=== PATIENT | female | born 1995 | race Caucasian/White ===

== ENCOUNTER 2016-09-22 09:41 | Outpatient (CLI) | payer OTHER ==
[2015-10-10 22:41] VITALS: BP 138/85
== END 2016-09-22 09:42 ==
LOC: LAB 09:41
PROVIDERS: ATTEND Physician Assistant
DX: N93.9 Abnormal uterine and vaginal bleeding, unspecified (principal); Z32.00 Encounter for pregnancy test, result unknown
CPT/HCPCS: 36415; 84702

== ENCOUNTER 2016-10-12 16:09 | Outpatient (CLI) | payer OTHER ==
[2015-10-10 22:41] VITALS: BP 138/85
[2016-10-13 11:31] LABS: CANDIDA SPECIES DNA PROBE NEGATIVE (NEGATIVE); GARDNERELLA VAGINALIS NEGATIVE (NEGATIVE); TRICHOMONAS VAGINALIS NEGATIVE (NEGATIVE)
== END 2016-10-12 16:10 ==
LOC: LABRHC 16:09
PROVIDERS: ATTEND Physician Assistant
DX: N89.8 Other specified noninflammatory disorders of vagina (principal); N93.0 Postcoital and contact bleeding
CPT/HCPCS: 87480; 87491; 87510; 87591; 88148; G0143

== ENCOUNTER 2017-02-02 10:33 | Outpatient (CLI) | payer OTHER ==
[2015-10-10 22:41] VITALS: BP 138/85
== END 2017-02-02 10:34 ==
LOC: LABRHC 10:33
PROVIDERS: ATTEND Physician Assistant
DX: N89.8 Other specified noninflammatory disorders of vagina (principal); Z72.51 High risk heterosexual behavior
CPT/HCPCS: 87491; 87591

== ENCOUNTER 2017-10-03 12:02 | Outpatient (CLI) | payer OTHER ==
[2015-10-10 22:41] VITALS: BP 138/85
[2017-10-03 12:14] LABS: BASOPHILS % 0.3 (0.0-1.5); EOSINOPHILS % 0.5 % (0.0-6.8); MEAN CORPUSCULAR HEMOGLOBIN 32.8 pg (28.0-34.0); MEAN CORPUSCULAR VOLUME 99.3 fl (80.0-100.0); MONOCYTES % 5.3 % (0.0-11.0); NEUTROPHILS # 5.1 # k/uL (1.4-7.7)
== END 2017-10-03 12:03 ==
LOC: LAB 12:02
PROVIDERS: ATTEND Physician Assistant
DX: J02.9 Acute pharyngitis, unspecified (principal)
CPT/HCPCS: 36415; 85025; 86308

== ENCOUNTER 2018-01-31 17:42 | Emergency (ER) | payer OTHER ==
--- NOTE | 2018-01-31 17:52 | ED Physician Documentation ---
Low Back Pain - HISTORIAN Historian: patient - HPI Chief Complaint: Low Back Pain/ Injury History: other (left hip, has bben seeing orthopedic for this, doing exercises which have helped) Onset: minutes Duration: continues in ED Recent Injury: No Context: other (coughing) Where: home Severity: severe Associated Symptoms: denies: fever, chills Worsened By:: upright position, movement to RT flexion, movement to LT flexion, cough Relieved By: remaining still - ROS CONST: no problems CVS/RESP: denies: chest pain, shortness of breath - PAST HX Past History: other Other History: other (none) Surgeries/Procedures: appendectomy, other (tonsilectomy) Immunizations: referred to PCP - SOCIAL HX Smoking History: non-smoker Alcohol Use: occasionally Drug Use: marijuana - FAMILY HX Family History: no significant history - REVIEWED ASSESSMENTS Nursing Assessment Reviewed: Yes Vitals Reviewed: Yes <Issa Watkins - Last Filed: 01/31/18 18:21> <CHANELLE MORRISON - Last Filed: 01/31/18 20:21> - HPI Additional Information: Patient states that after coughing spell and developed a sudden onset of pain in the low back area. Grabbing intense pain in the lower back. Was unable to walk, pain made her knees buckle under her. Pain is worse with moving. No numbness, weakness noted. Denies . (Issa Watkins) Patient states that after coughing spell and developed a sudden onset of pain in the low back area. Grabbing intense pain in the lower back. Was unable to walk, pain made her knees buckle under her. Pain is worse with moving. No numbness, weakness noted. Denies . (CHANELLE MORRISON) - PAST HX Allergies/Adverse Reactions: Allergies Allergy/AdvReac Type Severity Reaction Status Date / Time Penicillins Allergy Severe Throat Verified 01/31/18 17:56 Swelling Home Medications: Ambulatory Orders Medication Instructions Recorded Medroxyprogesterone Acetate 400 mg IM DIRECTED 03/14/14 [Depo-Provera] Baclofen [Liorasal] 10 mg PO TID PRN #30 tablet 01/31/18 Ketorolac Tromethamine [Toradol] 10 mg PO TID #15 tablet 01/31/18 - VITAL SIGNS Vital Signs: Vital Signs Temp Pulse Resp BP Pulse Ox 97.8 F 94 H 24 122/103 97 01/31/18 17:44 01/31/18 17:44 01/31/18 17:44 01/31/18 17:44 01/31/18 17:44 Progress <Issa Watkins - Last Filed: 01/31/18 18:21> <CHANELLE MORRISON - Last Filed: 01/31/18 20:21> - Progress Progress: 0 Assumed care of patient; in radiology for xrays. 1929 Walked into patient room, patient stated "Do I just need to go to [place]?". Examined patient; continues to c/o 10/10 low back pain. No spasm noted; xrays negative. C/O pain radiating down both legs. Denies numbness or weakness. Will check UA for hematuria. Additional Stadol 2mg IM given. UA negative. Reviewed plan of care. Patient continues to c/o pain. Will send home with 2 norco. explained that she could not take before midnight. Instructed patient to tell [place] she was seen at [facility] if she returns to ER [facility]. Instructed patient to make a follow up appointment with PCP in 3-4 days, explained that she would need MRI if pain continues. Patient verbailzed understanding. Able to walk out of ER without assistance. (CHANELLE MORRISON) ED Results Lab/Radiology <Issa Watkins - Last Filed: 01/31/18 18:21> <CHANELLE MORRISON - Last Filed: 01/31/18 20:21> - Lab Results Lab Results: Lab Results 01/31/18 18:15 Serum HCG, Qual Negative (NEGATIVE) - Radiology Radiology Impressions: Ice Rest Elevation If you are unable to bear weight and continuing to have significant pain on day 3-4; see your PCP for re-evaluation and additional xrays. You may use Tylenol every 4hour as needed for pain. Limit your dose to less than 4 G per day. Do not take ibuprofen, aleve, naproxen or any other NSAID while you are on toradol. You may want to try massage, over the counter lidocaine patches, biofreeze, cullen torres or aspercream . (Issa Watkins) Ice Rest Elevation If you are unable to bear weight and continuing to have significant pain on day 3-4; see your PCP for re-evaluation and additional xrays. You may use Tylenol every 4hour as needed for pain. Limit your dose to less than 4 G per day. Do not take ibuprofen, aleve, naproxen or any other NSAID while you are on toradol. You may want to try massage, over the counter lidocaine patches, biofreeze, cullen torres or aspercream . (CHANELLE MORRISON) - Orders Orders: ED Orders Category Date Time Status Place IV Lock 1T Care 01/31/18 17:58 Active L SPINE 2 OR 3 VIEWS [RAD] Stat Exams 01/31/18 Ordered HCG [SERUM HCG] Routine Lab 01/31/18 18:15 Completed UA W/MICRO IF INDICATED Stat Lab 01/31/18 19:32 ORD Butorphanol Tartrate [Stadol] Med 01/31/18 19:32 Discontinued 2 mg IM NOW ONE HYDROcodone /APAP 5/325 [[place] 5/325] Med 01/31/18 19:56 Discontinued 2 each PO NOW ONE Ketorolac Tromethamine [Toradol] Med 01/31/18 17:58 Discontinued 30 mg IVP NOW ONE Orphenadrine Citrate [Norflex] Med 01/31/18 17:59 Discontinued 60 mg IV NOW ONE fentaNYL CITRATE/PF [Duragesic] Med 01/31/18 18:42 Discontinued 50 mcg IVP NOW ONE Low Back Pain/Injury - Physical Exam General Appearance: alert, moderate distress Neck: non-tender, painless ROM, trachea midline. No: muscle spasm Resp/CVS: chest non-tender, breath sounds nml, heart sounds nml, no resp. distress, lungs clear, reg. rate & rhythm Abdomen: non-tender, no organomegaly, no pulsatile mass, hepatomegaly Back: other (no tenderness over the area where the pain was, restimg more comfortably at this time). No: vertebral point-tendernes Neuro/Psych: oriented x3, motor nml, sensation nml, reflexes nml Skin: warm/dry, normal color <sIsa Watkins - Last Filed: 01/31/18 18:21> Discharge <Issa Watkins - Last Filed: 01/31/18 18:21> Decision to Admit: NO Decision Time: 20:10 <CHANELLE MORRISON - Last Filed: 01/31/18 20:21> Clincal Impression: Low back strain Qualifiers: Encounter type: initial encounter Qualified Code(s): S39.012A - Strain of muscle, fascia and tendon of lower back, initial encounter Prescriptions: Baclofen [Liorasal] 10 mg PO TID PRN #30 tablet PRN Reason: Spasms Ketorolac Tromethamine [Toradol] 10 mg PO TID #15 tablet Referrals: Carmen Verma PA [Primary Care Provider] - 2 Days Condition: Stable Disposition: 01 HOME, SELF-CARE
[2018-01-31] MEDS ORDERED: KETOROLAC TROMETHAMINE 30 MG/1ML VIAL IVP ONE (17:58)
[2018-01-31] MEDS ORDERED: ORPHENADRINE CITRATE 60 MG/2ML IV ONE (17:59)
[2018-01-31] MEDS ORDERED: fentaNYL CITRATE/PF 100 MCG/ 2ML AMP IVP ONE (18:42)
[2018-01-31] MEDS ORDERED: BUTORPHANOL TARTRATE 2 MG/ML VIAL IM ONE (19:32)
[2018-01-31] MEDS ORDERED: HYDROcodone /APAP 5/325 1 EACH TABLET PO ONE (19:56)
[2018-01-31 20:43] VITALS: BP 116/64
--- NOTE | 2018-02-01 05:10 | Diagnostic Imaging Report ---
[address] [facility] [address] [facility] [address] [address] Report Submission Date: Jan 31, 2018 7:16:01 PM CDT Patient Study Name: ERMA WITT Date: Jan 31, 2018 6:55:37 PM CDT Modality Type: DX Gender: F Description: SPINE : 95 Institution: [facility] Physician: [address] Lumbar spine History: Acute low back pain AP and lateral projections of the lumbar spine demonstrate normal alignment. Vertebral body height and intervertebral disc space height is maintained. There is no spondylolisthesis or spondylolysis. Impression: No osseous abnormality. Electronically signed on Jan 31, 2018 7:16:01 PM CDT by: Taya FALCON
[2018-02-01 07:27] LABS: APPEARANCE,URINE CLEAR (CLEAR); COLOR,URINE YELLOW (YELLOW); OCCULT BLOOD,URINE NEGATIVE (NEGATIVE); PH URINE 6.5 (5.0 - 8.0); UROBILINOGEN URINE 0.2 Eu (0.2-1.0)
== END 2018-01-31 20:00 | disposition home or self-care (01) ==
LOC: ED 17:42
DX: S39.012A Strain of muscle, fascia and tendon of lower back, initial encounter (principal); X58.XXXA Exposure to other specified factors, initial encounter; Y92.9 Unspecified place or not applicable; Y93.9 Activity, unspecified; Y99.9 Unspecified external cause status
CPT/HCPCS: 72100; 81002; 84703; A9270; J0595; J1885; J2360; J3010; 96372; 96374; 96375; 99284; S1016

== ENCOUNTER 2018-07-15 16:25 | Emergency (ER) | payer OTHER ==
--- NOTE | 2018-07-15 16:33 | ED Physician Documentation ---
General Adult - HISTORIAN Historian: patient - HPI Stated Complaint: RLQ abdominal pain Chief Complaint: Abdominal Pain Onset: hours (1) Timing: still present Severity: mild Further Comments: yes (She reports a history of cysts on her ovaries. She reports starting with pain about one hour ago. No injury. No N/V/D. She states the pain is cramping and sharp. She has not taken any OTC meds. "I always have pain with sex" denies any vaginal discharge. She states her pain is a 10.) Last known Well Code/Unknown Code: Unknown - ROS CONST: no problems CVS/RESP: denies: chest pain GI/: abdominal pain. denies: problems urinating, vomiting, nausea, diarrhea MS/SKIN/LYMPH: denies: rash NEURO/PSYCH: denies: headache - PAST HX Past History: none (PCOS and ulcers ) Immunizations: UTD Allergies/Adverse Reactions: Allergies Allergy/AdvReac Type Severity Reaction Status Date / Time Penicillins Allergy Severe Throat Verified 07/15/18 16:39 Swelling Home Medications: Ambulatory Orders Medication Instructions Recorded Medroxyprogesterone Acetate 400 mg IM DIRECTED 03/14/14 [Depo-Provera] - SOCIAL HX Smoking History: cigarettes Alcohol Use: none Drug Use: none - FAMILY HX Family History: No - VITAL SIGNS Vital Signs: Vital Signs Temp Pulse Resp BP Pulse Ox 116/64 01/31/18 20:00 - REVIEWED ASSESSMENTS Nursing Assessment Reviewed: Yes Vitals Reviewed: Yes Progress - Progress Progress: 1745: discuss results and review pain level. She states she is not feeling any better with pain. She states she will not do a CT scan because she will not take out her nipple piercing. She states she would just like to go home. Discussed with nurse to have pt sign AMA form. DG 1750: Nurse states pt discussed this with office systems technology instructor after xray and she did not need to remove her piercing and she would be agreeable to the CT. DG 1755: Person with pt asked for provider to come in the room. After discussion she states "why are you doing a CT scan I need an intravaginal U/S" - I explained to the pt I did not have U/S capability but my next diagnostic exam for her pain would be a CT scan of her abdomen and pelvis and she reported " I am sitting her getting more and more pissed off you have let me be here 2 hours and did nothing for my pain and your saying you can't provide the exam I need for my pain" - I explained to her that we tried the Toradol at 1725 and we had discussed her pain at that time she said she wanted to just leave. I would need the next test and give the toradol time to take effect and discuss next step. She states that she wants the IV out if I am not going to give her meds to help her pain or if I didn't know what test to order. She also stated that she wished I knew what I was talking about because I said she had to remove her piercing to get the CT scan - I did clairfy that is a radiology issue and I did not say she had to remove them although after me stating the next exam was CT she stated she would just leave. She asked again what I would do for her pain or she was just going to "rip this IV out and go because I am so pissed your not helping me". She then signed the AMA form and stated she would be reporting this to the BLACKSMITH SUPERVISOR Tuesday. DG ED Results Lab/Radiology - Radiology Radiology Impressions: Single view chest and 2 views of the abdomen Clinical history: Abdominal pain Findings: The heart size is normal. The lungs are clear. No pneumoperitoneum. Bowel gas pattern is normal. Impression: Negative Electronically signed on Jul 15, 2018 5:32:12 PM LIFE MANAGEMENT TEACHER by: Robert Calderon General Adult Physical Exam - PHYSICAL EXAM GENERAL APPEARANCE: no distress EENT: eye inspection normal, no signs of dehydration NECK: normal inspection RESPIRATORY: no resp distress, chest non-tender, breath sounds normal CVS: reg rate & rhythm, heart sounds normal ABDOMEN: soft, normal bowel sounds, no distension, tenderness (after palpation ) BACK: normal inspection, no CVA tenderness SKIN: warm/dry, normal color NEURO: oriented X3 Discharge Clincal Impression: Abdominal pain Qualifiers: Abdominal location: right lower quadrant Qualified Code(s): R10.31 - Right lower quadrant pain Referrals: Carmen Verma PA [Primary Care Provider] - 2 Days Condition: Stable Disposition: AGAINST MEDICAL ADVICE Decision to Admit: NO Date of Decison to Admit: 07/15/18 Decision Time: 18:00
[2018-07-15] MEDS ORDERED: KETOROLAC TROMETHAMINE 30 MG/1ML VIAL IVP ONE (16:56)
[2018-07-15] MEDS ORDERED: 0.9 % SODIUM CHLORIDE 1,000 ML IV ONE (16:57)
[2018-07-15 17:11] VITALS: BP 142/76
[2018-07-15 17:12] LABS: BASOPHILS % 0.5 (0.0-1.5); EOSINOPHILS % 1.2 % (0.0-6.8); MONOCYTES % 8.7 % (0.0-11.0); NEUTROPHILS # 2.8 # k/uL (1.4-7.7)
[2018-07-15 17:24] LABS: eGFR (Non-African) > 60
--- NOTE | 2018-07-15 17:35 | Diagnostic Imaging Report ---
SHARON HARPER [facility] [address] [facility] [address] [place], [place]. [address] Report Submission Date: Jul 15, 2018 5:32:12 PM [employer]SE HITCH DRIVER Patient Study Name: ERMA WITT Date: Jul 15, 2018 5:02:18 PM [employer] H[employer] DRIVER Modality Type: DX Gender: F Description: ABD SERIES PA CHEST : 95 Institution: [facility] Physician: SAHRON HARPER Single view chest and 2 views of the abdomen Clinical history: Abdominal pain Findings: The heart size is normal. The lungs are clear. No pneumoperitoneum. Bowel gas pattern is normal. Impression: Negative Electronically signed on Jul 15, 2018 5:32:12 PM FOUR HORSE HITCH DRIVER by: Robert FALCON
[2018-07-16 11:00] LABS: APPEARANCE,URINE CLEAR (CLEAR); COLOR,URINE YELLOW (YELLOW)
[2018-07-16 11:01] LABS: OCCULT BLOOD,URINE TRACE-LYSED (NEGATIVE); UROBILINOGEN URINE 0.2 Eu (0.2-1.0)
[2018-07-16 11:06] LABS: CANNABINOIDS NON NEGATIVE ng/mL (< 50); URINE HCG NEGATIVE (NEGATIVE)
[2018-07-16 11:07] LABS: METHYLENEDIOXYMETHAMPHETAMINE NEGATIVE ng/mL (<500)
== END 2018-07-15 17:15 | disposition left against medical advice (07) ==
LOC: ED 16:25
DX: R10.31 Right lower quadrant pain (principal)
CPT/HCPCS: 36415; 74022; 80053; 80377; 81002; 81025; 83690; 85025; 96374; 99283; 99284; J1885; G0481; J7030; S1016